=== PATIENT | female | born 1945 | race Caucasian/White ===

== ENCOUNTER → 2023-04-14 | Outpatient (REF) | payer MEDICARE, OTHER, SELFPAY | LOC: DHSLP | PROVIDERS: ATTENDING PHYSICIAN Internal Medicine Critical Care Medicine | DX: G47.33 Obstructive sleep apnea (adult) (pediatric) (principal) | CPT/HCPCS: 95800 ==

== ENCOUNTER → 2023-05-07 08:00 | Outpatient (REF) | payer MEDICARE, OTHER, SELFPAY | LOC: MRI 3T 08:00 | PROVIDERS: ATTENDING PHYSICIAN Specialist; FAMILY PHYSICIAN Physician Assistant | DX: M25.511 Pain in right shoulder (principal) | CPT/HCPCS: 73221 ==

== ENCOUNTER → 2023-12-15 12:18 | Outpatient (REF) | payer MEDICARE, OTHER, SELFPAY | LOC: WDC 12:18 | PROVIDERS: ATTENDING PHYSICIAN Physician Assistant | DX: Z12.31 Encounter for screening mammogram for malignant neoplasm of breast (principal) | CPT/HCPCS: 77063; 77067 ==

== ENCOUNTER → 2024-02-23 10:52 | Outpatient (REF) | payer MEDICARE, OTHER, SELFPAY | LOC: RAD 10:52 | PROVIDERS: ATTENDING PHYSICIAN Optometrist; FAMILY PHYSICIAN Physician Assistant; REFERRING PHYSICIAN Internal Medicine Cardiovascular Disease | DX: G45.3 Amaurosis fugax (principal) | CPT/HCPCS: 93880 ==

== ENCOUNTER → 2024-04-14 08:47 | Outpatient (REF) | payer MEDICARE, OTHER, SELFPAY | LOC: PAVMRI 08:47 | PROVIDERS: ATTENDING PHYSICIAN Family Medicine | DX: G25.0 Essential tremor (principal) | CPT/HCPCS: 70551 ==

== ENCOUNTER → 2024-04-30 12:49 | Outpatient (REF) | payer MEDICARE, OTHER, SELFPAY | LOC: WDC 12:49 | PROVIDERS: ATTENDING PHYSICIAN Physician Assistant; FAMILY PHYSICIAN Family Medicine | DX: R92.30 Dense breasts, unspecified (principal) | CPT/HCPCS: 76641 ==

== ENCOUNTER → 2024-05-23 08:51 | Outpatient (REF) | payer MEDICARE, OTHER, SELFPAY | LOC: HWRAD 08:51 | PROVIDERS: ATTENDING PHYSICIAN Family Medicine | DX: Z13.820 Encounter for screening for osteoporosis (principal); Z78.0 Asymptomatic menopausal state | CPT/HCPCS: 77080 ==

== ENCOUNTER → 2024-09-23 12:58 | Outpatient (REF) | payer MEDICARE, OTHER, SELFPAY ==
[2024-09-23 13:26] LABS: Hematocrit 39.2 % (37.0-47.0); Hemoglobin 13.0 g/dL (12.0-16.0); Mean Corp Hgb Conc. 33.2 g/dL (33.0-37.0); Mean Corpuscular Volume 88.9 fL (81.0-99.0); Nucleated Red Blood Cells % 0 %; Platelet Count 249 10^3/uL (130-400); Red Cell Dist. Width 13.3 % (11.5-14.5)
[2024-09-23 13:44] LABS: ALT (SGPT) 32 U/L (0-35); AST (SGOT) 52 U/L (14-36); Albumin 4.6 g/dl (3.5-5.0); Alkaline Phosphatase 85 U/L (38-126); Blood Urea Nitrogen 11 mg/dl (7-17); Calcium 9.5 mg/dl (8.4-10.2); Carbon Dioxide 23 mmol/L (22-30); Chloride 107 mmol/L (98-107); Glucose 95 mg/dl (70-99); Potassium 4.3 mmol/L (3.5-5.1); Sodium 138 mmol/L (135-145); Total Protein 7.5 g/dl (6.3-8.2); eGFR > 60.00
== END ==
LOC: SDSPAT 12:58
PROVIDERS: ATTENDING PHYSICIAN Student in an Organized Health Care Education/Training Program; REFERRING PHYSICIAN Internal Medicine Cardiovascular Disease
DX: I35.0 Nonrheumatic aortic (valve) stenosis (principal)
CPT/HCPCS: 36415; 80053; 85025; 93005

== ENCOUNTER 2024-10-10 10:52 | Day surgery (SDC) | payer MEDICARE, OTHER, SELFPAY ==
[2024-09-23 13:09] VITALS: BMI 30.7
[2024-10-10] VITALS (13 sets, daily range): BP systolic 124–149; BP diastolic 53–74; BMI 29.2
[2024-10-10] MEDS: NSS 231 ML IV (11:15)
--- NOTE | 2024-10-10 11:43 | ITS.CL.PN ---
[employer] - Procedure Note
Procedure
Procedure Note:
CARDIAC CATHETERIZATION REPORT
Date of Procedure: 10/10/2024
Referring: Dr. Bony Rahman MD
Indication: dyspnea on exertion and moderate to severe aortic valve stenosis
PROCEDURE(S)
1. right heart catheterization
2. left heart catheterization
3. coronary angiography
ACCESS
1. 6F right radial artery (closure: radial band)
2. 5F right antecubital vein (closure: manual hemostasis)
CATHETERS
1. 5F [place]
2. 6F JR4
3. 6F JL3.5
MODERATE SEDATION: 25 minutes of moderate sedation was utilized. An independent medical oncologist was present to assist with and help manage the patient's level of consciousness and physiologic status.
HEMODYNAMIC DATA
LV 177/14 (EDP 34) mmHg
AO 159/70 (mean 108) mmHg
RA 11 mmHg
RV 37/7 (EDP 14) mmHg
PA 35/15 (mean 23) mmHg
PCWP 17 mmHg
SaO2 97.7%
SvO2 75.2%
Hb 11.8 g/dL
CO/CI 6.33/3.46 L/min/m2
SVR 1402 dsc*-5
PVR 1.0 [place] units
Aortic valve study: Mean gradient 29.8 mmHg at heart rate of 72 giving stroke-volume index of 48 mL/m2 and valve area of 1.15 cm2 (indexed valve area 0.63 cm2/m2)
CORONARY ANGIOGRAPHY
Dominance: right
LM: Large with no disease
LAD: Large vessel giving rise to several small diagonal branches and wrapping around the apex. There are trivial luminal irregularities and the vessel becomes atretic in its distal apical portion.
LCx: Large vessel giving rise to a small high rising OM1/ramus, moderate caliber OM2, small OM , and small LPL branch. There are trivial luminal irregularities only.
RCA: Moderate caliber vessel giving rise to a small RPDA and two very small RPL branches. There are trivial luminal irregularities only.
RADIATION: dose 189 mGy; DAP 11.5 Gy*cm2; fluoroscopy time 2.9 min
CONCLUSIONS
1. Nonobstructive coronary artery disease as described in a right dominant system
2. Mildly elevated biventricular filling pressures and normal cardiac output
3. Aortic valve study demonstrates moderate to severe normal flow aortic stenosis (mean gradient 29.8 mmHg, valve area 1.15 cm2 (0.63 cm2/m2), SVI 48 mL/m2)
RECOMMENDATION: Findings of mild coronary artery disease and unremarkable filling pressures yet moderate to severe aortic valve stenosis in the setting of progressive dyspnea. It is certainly possible that her aortic valve stenosis is the source of
her dyspnea, although on both cath and recent echo she does not meet criteria for severe . For now, recommend close monitoring of her symptoms and aortic valve severity with q6 month TTE with low threshold to consider referral for aortic valve
replacement if no alternative explanation of her dyspnea is determined. There also may be an element of deconditioning contributing to her progressive symptoms. Noncardiac etiologies should be thoroughly explored as well.
Copy to: Dr. Bony Rahman MD (ostomy rn); Dr. Anup Payne DO (PCP)
Signed: Vinay Kang MD, PhD
[2024-10-10] MEDS: NSS 1000 IV (14:35)
== END 2024-10-10 17:20 | disposition home or self-care (01) ==
LOC: CATH 10:52
PROVIDERS: ATTENDING PHYSICIAN Student in an Organized Health Care Education/Training Program; FAMILY PHYSICIAN Family Medicine; OTHER PHYSICIAN Internal Medicine Cardiovascular Disease
DX: I25.10 Atherosclerotic heart disease of native coronary artery without angina pectoris (principal); I35.0 Nonrheumatic aortic (valve) stenosis; R06.09 Other forms of dyspnea; I10 Essential (primary) hypertension; E78.5 Hyperlipidemia, unspecified; Z68.30 Body mass index [BMI] 30.0-30.9, adult; E66.9 Obesity, unspecified; J45.909 Unspecified asthma, uncomplicated; G25.0 Essential tremor; R07.89 Other chest pain; Z79.899 Other long term (current) drug therapy; Z88.0 Allergy status to penicillin; Z79.51 Long term (current) use of inhaled steroids; Z87.891 Personal history of nicotine dependence
CPT/HCPCS: 99152; 99153; 93460; C1894; Q9967